=== PATIENT | female | born 1990 | race Caucasian/White ===

== ENCOUNTER 2021-09-09 08:59 | Outpatient (CLI) | payer MEDICAID, SELFPAY ==
[2021-09-09 12:19] LABS: Amphetamine Urine VISTA NEGATIVE (<1000 ng/mL); Barbiturate Urine VISTA NEGATIVE (< 200 ng/mL); Benzodiazepine Urine VISTA NEGATIVE (< 200 ng/mL); Cocaine Urine VISTA NEGATIVE (< 300 ng/mL); Ecstacy Urine VISTA NEGATIVE (< 500 ng/mL); Methadone Urine VISTA NEGATIVE (< 300 ng/mL); PCP Urine VISTA NEGATIVE (< 25 ng/mL); THC Urine VISTA NEGATIVE (< 50 ng/mL); Vista UDS pH Range 6
[2021-09-12 00:06] LABS: Chlamydia By Nucleic Acid AMP Negative (Negative)
[2021-09-12 14:09] LABS: Gonococcus By Nucleic Acid AMP Negative (Negative)
== END 2021-09-09 23:59 | disposition short-term general hospital (02) ==
PROVIDERS: PCP Family Medicine; Visit Provider Obstetrics & Gynecology
DX: O09.90 Supervision of high risk pregnancy, unspecified, unspecified trimester (principal); Z3A.00 Weeks of gestation of pregnancy not specified
CPT/HCPCS: 80307; 87086; 87088; 87186; 87491; 87591

== ENCOUNTER 2021-10-13 08:14 | Outpatient (CLI) | payer MEDICAID, SELFPAY | END 2021-10-13 23:59 | disposition home or self-care (01) | LOC: LABSPEC 08:15 | PROVIDERS: PCP Family Medicine; Visit Provider Obstetrics & Gynecology | DX: O99.891 Other specified diseases and conditions complicating pregnancy (principal); R82.71 Bacteriuria; Z3A.00 Weeks of gestation of pregnancy not specified | CPT/HCPCS: 87086 ==

== ENCOUNTER 2021-11-04 13:29 | Outpatient (CLI) | payer MEDICAID, SELFPAY ==
[2021-11-04 13:49] LABS: Absolute Lymphocyte Count 1.16 X10^3/uL (0.83-4.51); Absolute Neutrophil Count 5.2 X10^3/uL (2.0-7.7); Basophil# 0.04 X10^3/uL; Basophil% 0.6 % (0-1); Eosinophils% 1.5 % (0-5); Hematocrit 37.4 % (37-47); Hemoglobin 12.8 g/dL (12.0-15.0); Lymphocyte # 1.16 X10^3/ul (0.83-4.51); Lymphocyte % 16.9 % (19-41); Mean Corp Hgb Conc 34.2 g/dL (32-36); Mean Corpuscular Hgb 32.2 pg (27.0-32.0); Mean Corpuscular Volume 94.2 fL (81-99); Mean Platelet Vol. 9.9 fl (6.2-12.0); Monocyte# 0.36 X10^3/uL; Monocyte% 5.2 % (0-10); NRBC Flagged by Analyzer 0 % (0-5); Neutrophil # 5.18 X10^3/uL (2.7-7.7); Neutrophil % 75.5 % (47-70); Platelet Count 252 K/mm3 (150-450); RBC Distribution Width CV 13.1 % (11.6-14.6); RBC Distribution Width SD 45.5 fl (35.1-43.9); Red Blood Count 3.97 M/mm3 (4.2-5.4); White Blood Count 6.9 K/mm3 (4.4-11.0)
[2021-11-04 14:55] LABS: HIV - WCH Non-Reactive (Nonreactive); Hepatitis B Surface Antigen Non-Reactive (Nonreactive); Hepatitis C Antibody Non-Reactive (Nonreactive); Rubella IgG Reactive (Nonreactive); Syphilis Antibodies Non-reactive
[2021-11-06 18:40] LABS: V-Zoster IgG (Immunity) 808 index (Immune >165)
== END 2021-11-04 23:59 | disposition home or self-care (01) ==
PROVIDERS: Obstetrics & Gynecology; PCP Family Medicine; Referring Provider Nurse Practitioner Women's Health; Visit Provider Nurse Practitioner Women's Health
DX: R30.9 Painful micturition, unspecified (principal)
CPT/HCPCS: 36415; 85025; 86703; 86762; 86780; 86787; 86803; 86850; 86900; 86901; 87086; 87088; 87186; 87340

== ENCOUNTER → 2021-12-29 | Outpatient (CLI) | payer MEDICAID, SELFPAY ==
--- NOTE | 2021-12-29 11:28 | US_ITS ---
We are attempting to reach an attending provider to discuss findings. An addendum with communication details will be sent when the communication is complete. STUDY: SECOND AND THIRD TRIMESTER OBSTETRICAL ULTRASOUND - LIMITED REASON FOR EXAM: Female, 31 years old. growth @ 28 weeks PRIOR ULTRASOUND: None. TECHNIQUE: Transabdominal TECHNICAL QUALITY: Adequate. FINDINGS: There is a single intrauterine fetus. The fetus is in a breech presentation. There is demonstrated cardiac activity with a heart rate of 140 bpm. There is a normal amniotic fluid volume. The largest amniotic fluid pocket measures 5 cm. The amniotic fluid index (FERNANDO) is 14.3 cm. The placenta is posterior in location and is not low lying. There are Grade 0 placental changes. The cervix measures cm in length: 5.3. There is a placental hematoma measuring 20 x 36 mm. BIOMETRY: BPD: 66 mm: 26 weeks, 5 days HC: 263 mm: 28 weeks, 4 days AC: 243 mm: 28 weeks, 4 days FL: 52 mm: 27 weeks, 3 days CI: 70 FL/AC: 21 FL/BPD: 78 HC/AC: 1.08 age by current US: 28 weeks, 0 days. VICKIE by current US: 8.15.22. Estimated weight: 1167 grams, +/- 175 grams, 39 %. Age by LMP: 28 weeks, 0 days. VICKIE by LMP: 8.15.22. US/OB Limited With Biometrics IMPRESSION: There is a single live intrauterine with a heart rate of 140 bpm. age by current US: 28 weeks, 0 days. VICKIE by current US: 8.15.22. Estimated weight: 1167 grams, +/- 175 grams, 39 %. There is a placental hematoma measuring 20 x 36 mm. NSC findings protocol was initiated. Electronically Signed: Poncho Solitario MD at 21:28 EDT ,
== END | disposition home or self-care (01) ==
LOC: OPUS 11:26
PROVIDERS: Referring Provider Nurse Practitioner Women's Health; Visit Provider Nurse Practitioner Women's Health
DX: O43.899 Other placental disorders, unspecified trimester (principal); Z3A.00 Weeks of gestation of pregnancy not specified
CPT/HCPCS: 76816

== ENCOUNTER → 2022-01-01 | Outpatient (CLI) | payer MEDICAID, SELFPAY ==
[2022-01-01 10:48] LABS: Absolute Lymphocyte Count 1.18 X10^3/uL (0.83-4.51); Absolute Neutrophil Count 6.4 X10^3/uL (2.0-7.7); Basophil# 0.03 X10^3/uL; Basophil% 0.4 % (0-1); Eosinophils% 1.2 % (0-5); Hematocrit 32.4 % (37-47); Hemoglobin 10.9 g/dL (12.0-15.0); Lymphocyte # 1.18 X10^3/ul (0.83-4.51); Lymphocyte % 14.4 % (19-41); Mean Corp Hgb Conc 33.6 g/dL (32-36); Mean Corpuscular Hgb 30.4 pg (27.0-32.0); Mean Corpuscular Volume 90.5 fL (81-99); Mean Platelet Vol. 10.3 fl (6.2-12.0); Monocyte# 0.47 X10^3/uL; Monocyte% 5.8 % (0-10); NRBC Flagged by Analyzer 0 % (0-5); Neutrophil # 6.35 X10^3/uL (2.7-7.7); Neutrophil % 77.7 % (47-70); Platelet Count 216 K/mm3 (150-450); RBC Distribution Width CV 12.6 % (11.6-14.6); RBC Distribution Width SD 41.1 fl (35.1-43.9); Red Blood Count 3.58 M/mm3 (4.2-5.4); White Blood Count 8.2 K/mm3 (4.4-11.0)
[2022-01-01 10:56] LABS: Glucose Challenge Gest 1H 50g 142 mg/dL (70-140)
== END | disposition home or self-care (01) ==
PROVIDERS: Referring Provider Nurse Practitioner Women's Health; Visit Provider Nurse Practitioner Women's Health
DX: Z13.1 Encounter for screening for diabetes mellitus (principal)
CPT/HCPCS: 36415; 82950; 85025

== ENCOUNTER → 2022-02-13 | Outpatient (CLI) | payer MEDICAID, SELFPAY ==
[2022-02-13 10:31] LABS: ALB/GLOB Ratio 0.7 RATIO (0.9-2.4); AST(SGOT) 20 U/L (15-37); Alanine Aminotransfer ALT/SGPT 21 U/L (13-56); Albumin, Serum 2.7 g/dL (3.2-5.0); Alkaline Phosphatase 118 U/L (45-117); Anion Gap 5 (5-15); BUN 8 mg/dL (7-18); Calcium,Total 8.9 mg/dL (8.5-10.1); Chloride 107 mmol/L (98-107); Creatinine, Serum 0.66 mg/dL (0.55-1.02); EST Glomerular Filtration Rate 109 mL/min (>60); Est Glom Filt Rate - Afr Amer 132 mL/min (>60); Globulin 4.1 g/dL (2.2-4.2); Glucose 89 mg/dL (74-106); Potassium 3.8 mmol/L (3.5-5.1); Protein, Total 6.8 g/dL (6.4-8.2); Sodium Level 138 mmol/L (136-145)
== END | disposition home or self-care (01) ==
PROVIDERS: Referring Provider Obstetrics & Gynecology; Visit Provider Obstetrics & Gynecology
DX: L29.9 Pruritus, unspecified (principal)
CPT/HCPCS: 36415; 80053

== ENCOUNTER → 2022-02-24 | Outpatient (CLI) | payer MEDICAID, SELFPAY ==
--- NOTE | 2022-02-24 09:14 | US_ITS ---
STUDY: SECOND AND THIRD TRIMESTER OBSTETRICAL ULTRASOUND - LIMITED REASON FOR EXAM: Female, 32 years old growth LMP: 06/16/2021. PRIOR ULTRASOUND: Comparison is made with prior study 12/29/2021. TECHNIQUE: Transabdominal TECHNICAL QUALITY: Adequate. FINDINGS: There is a single intrauterine fetus. The fetus is in a cephalic presentation. There is demonstrated cardiac activity with a heart rate of 130 bpm. There is a normal amniotic fluid volume. The largest amniotic fluid pocket measures 5.21 cm. The amniotic fluid index (FERNANDO) is 12.89 cm. The placenta is fundal and posterior in location. There are Grade 0 placental changes. The cervix measures 4.5 cm in length. BIOMETRY: BPD: 8.74 cm: 35 weeks, 2 days HC: 32.13 cm: 36 weeks, 1 days AC: 32.57 cm: 36 weeks, 3 days FL: 7.01 cm: 35 weeks, 6 days Age by LMP: 36 weeks, 1 days. VICKIE by LMP: 03/23/2022. age by prior US: 36 weeks, 1 days. VICKIE by prior US: 03/23/2022. age by current US: 36 weeks, 0 days. VICKIE by current US: 03/24/2022. Estimated weight: 2892 grams, +/- 434 grams, 55 percentile. US/OB Limited With Biometrics IMPRESSION: Single live intrauterine gestation with mean gestational age of 36 weeks and 1 day. The measurements obtained today fall within normal expected range. Electronically Signed: Les Chaidez MD at 12:17 EDT ,
== END | disposition home or self-care (01) ==
LOC: OPUS 09:13
PROVIDERS: Referring Provider Obstetrics & Gynecology; Visit Provider Obstetrics & Gynecology
DX: O43.899 Other placental disorders, unspecified trimester (principal); Z3A.36 36 weeks gestation of pregnancy
CPT/HCPCS: 76816

== ENCOUNTER → 2022-02-27 | Outpatient (CLI) | payer MEDICAID, SELFPAY | END | disposition home or self-care (01) | LOC: LABSPEC 17:07 | PROVIDERS: Referring Provider Obstetrics & Gynecology; Visit Provider Obstetrics & Gynecology | DX: Z34.93 Encounter for supervision of normal pregnancy, unspecified, third trimester (principal) | CPT/HCPCS: 87077; 87081; 87186 ==

== ENCOUNTER 2022-03-30 05:42 | Inpatient (IN) | payer MEDICAID, SELFPAY ==
[2022-03-30] VITALS (54 sets, daily range): BP systolic 84–164; BP diastolic 45–108; PULSE 60–107; TEMP 36.2–36.9; O2SAT 85–100; BMI 33.8
[2022-03-30] MEDS: Lactated Ringers 1,000 ML 50 ML IV ×2 (07:40→15:28)
[2022-03-30] MEDS: 0.9% Normal Saline Single 100 ML IV.SOLN. INTRA-UTER (07:45)
[2022-03-30 07:56] LABS: Absolute Lymphocyte Count 1.76 X10^3/uL (0.83-4.51); Absolute Neutrophil Count 5.5 X10^3/uL (2.0-7.7); Basophil# 0.07 X10^3/uL; Basophil% 0.9 % (0-1); Eosinophil# 0.21 X10^3/uL; Eosinophils% 2.6 % (0-5); Hematocrit 35.6 % (37-47); Hemoglobin 11.6 g/dL (12.0-15.0); Lymphocyte # 1.76 X10^3/ul (0.83-4.51); Lymphocyte % 21.6 % (19-41); Mean Corp Hgb Conc 32.6 g/dL (32-36); Mean Corpuscular Hgb 28.1 pg (27.0-32.0); Mean Corpuscular Volume 86.2 fL (81-99); Mean Platelet Vol. 12.6 fl (6.2-12.0); Monocyte# 0.63 X10^3/uL; Monocyte% 7.7 % (0-10); NRBC Flagged by Analyzer 0 % (0-5); Neutrophil # 5.46 X10^3/uL (2.7-7.7); Neutrophil % 66.8 % (47-70); POSITIVE COUNT YES; RBC Distribution Width CV 13.7 % (11.6-14.6); RBC Distribution Width SD 42.5 fl (35.1-43.9); Red Blood Count 4.13 M/mm3 (4.2-5.4); White Blood Count 8.2 K/mm3 (4.4-11.0)
[2022-03-30 08:33] LABS: Differential Indicated SCAN CRITERIA MET
[2022-03-30 08:34] LABS: Platelet Estimate ADEQUATE (ADEQ)
[2022-03-30] MEDS: Oxytocin 30 units/NS 500 ml 30 UNITS/500 ML IV.SOLN IV (08:52)
[2022-03-30] MEDS: LACTATED RINGERS 500 ML 999 ML IV ×4 (09:45→23:56)
[2022-03-30] MEDS: Penicillin G 3,000,000 Units 50 ML 100 UNITS IV ×3 (12:15→20:45)
[2022-03-30] MEDS: fentaNYL-bupivacaine (epidural) 100 ML BAG EPIDURAL ×2 (19:19→23:56)
--- NOTE | 2022-03-30 19:26 | HP.PCM.OB_ITS ---
HPI - General General Date of Admission: 03/30/22 HPI Narrative BARBARA DOMINGUEZ, is a 32 F who presents for induction of labor secondary to 41 weeks. extensive counseling was provided regarding risks of IOL versus . she has over a 70% likelihood of success and has had 5 vaginal del iveries in the past. she deines any vb lof admits good fm. Maternal Data Information VICKIE Calculator Estimated Delivery Date Method Current WG Current Estimate 03/23/22 Ultrasound #1 41w 0d Other Estimates 03/30/22 LMP (Certain) 40w 0d PFSH [facility] Medical History Hematoma of placenta Home Medications vits,calcium no.78-iron fumarate-folic acid 29 mg-1 mg tablet (Prenatabs FA) 1 tab PO DAILY 02/12/15 [History Last Taken 02/12/15] nitrofurantoin macrocrystal 100 mg capsule 100 mg PO BID #60 caps 11/04/21 [Rx Last Taken Unknown] Allergy/AdvReac Type Severity Reaction Status Date / Time No Known Allergies Allergy Verified 03/27/22 09:38 Surgical History History of delivery History of colposcopy Social History adopted: No household members: significant other and children number of children: 6 current occupational status: employed current occupation: [employer] pets and animals: Yes pets and animals: dog(s) Smoking Status: Never smoker alcohol intake: never substance use type: does not use what type of physical activity do you participate in: walking additional social history: BF Daysi History 9 Elective abortions Hx Para 6 Spontaneous abortions 2 Hx # Term Pregnancies 6 Ectopic pregnancies Hx # Pregnancies Multiple births # of living children 6 Past Pregnancies Del. Date Name GA/Weeks Outcome Route Bth Weight Infant Gen Labor Lgth Anesthesia Del Locatn Provider FOB 10/19/05 Dexter live - full term 7#12oz Female non e [facility] [place] Daily 04/08/09 Boo live - full term 08#4oz Male non e [facility] [place] Daily 03/17/11 Thaddeus live - full term 9#4oz Male none [facility] [place] 06/30/12 Rich live - full term 8# Male none [facility] [place] 02/12/15 Jeff live - full term 7# Male none [facility] [place] Daily 05/28/16 Marco Antonio live - full term 9#4 Male epidural [facility] [place] Daily Delivery Date: 05/28/16 Last Updated by: Luz Chapa MD LGA, labor dystocia, distress, 2 wk postdates. Visit Details Expected Delivery Route/Plan TOLAC patient counseled regarding risks/benefits of trial of labor versus repeat . ACOG/uptodate education given to patient. [] % likelihood of success per calculator TOLAC consent form signed: [] Labor Preferences- CB/BF classes: no labor support person: Daysi labor intervention preferences: pt wants to . pain management options preferred: [] cut cord/dad catch: [] : [] PP control planned: discussed discussed possible routes of delivery and associated risks: [] special requests: [] Plans Covid status: discussed Flu vaccine: discussed Tdap vaccine: declines Rhogam: NA LARC form signed: yes movement and labor precautions reviewed. Problem list reviewed and updated with the most current plan of care details and appropriate orders placed. Relevant counseling for the gestational age provided. Continue routine care and follow up unless otherwise noted in visit notes/problem list details OB Flowsheet Initial Weight: 154 lb Date -?-?-?-?-?-?-?-?-?-?-?-?- EGA Weight BP Urine Prot -?-?-?-?-?-?-?-?-?-?-?-?- Glucose FHR FuHt Pres Dilation -?-?-?-?-?-?-?-?-?-?-?-?- Effaced St Visit Note 10/10/21 -?-?-?-?-?-?-?-?-?-?-?-?- 16w 4d 154 lb (+0 oz) 102/64 Negative -?-?-?-?-?-?-?-?-?-?-?-?- Negative 135 -?--?-?-?-?-?-?-?-?-?-?-?- SM- SM- no vb lof cramping blood work today 11/04/21 -?-?-?-?-?-?-?-?-?-?-?-?- 20w 1d 156 lb (+2 lb) 114/70 Negative -?-?-?-?-?-?-?-?-?-?-?-?- Negative 145 -?-?-?-?-?-?-?-?-?-?-?-?- MH-No VB, LOF. S ome movement. Dysuria-pos UA and culture pending. Rx macrobid and then daily for . Growth US 28 wk. PNL today!! 12/02/21 -?-?-?-?-?-?-?-?-?-?-?-?- 24w 1d 161 lb (+7 lb) 92/60 Negative -?-?-?-?-?-?-?--?-?-?-?-?- Negative 150 -?-?-?-?-?-?-?-?-?-?-?-?- SM- no vb lof go od fm no regular ctx 01/01/22 -?-?-?-?-?-?-?-?-?-?-?-?- 28w 3d 169 lb (+15 lb) 110/70 Negative -?-?-?-?-?-?-?-?-?-?-?-?- Negative 140 -?-?-?-?-?-?-?-?-?-?-?-?- MH-Reactive NST. Needs 3hr GTT and will add FE for anemia. Discussed management for concerning placental hematoma with Dr Chapa. Will get MFM consult. Good FM. NO VB, LOF. 01/16/22 -?-?-?-?-?-?-?-?-?-?-?-?- 30w 4d 168 lb 8 oz (+14 lb 8 oz) 113/78 Negative -?-?-?-?-?-?-?-?-?-?-?-?- Negative 150 -?-?-?-?-?-?-?-?-?-?-?-?- JV- nst reactive . continue twice weekly. setting up weekly growth scans 01/20/22 -?-?-?-?-?-?-?-?-?-?-?-?- 31w 1d 169 lb (+15 lb) 102/60 Negative -?-?-?-?-?-?-?-?-?-?-?-?- Negative 140 -?-?-?-?-?-?-?-?-?-?-?-?- SM- no vb lof go od fm no regular ctx, needs mfm consult 01/23/22 -?-?-?-?-?-?-?-?-?-?-?-?- 31w 4d 171 lb 8 oz (+17 lb 8 oz) 102/71 Negative -?-?-?-?-?-?-?-?-?-?-?-?- Negative 140 -?-?-?-?-?-?-?-?-?--?-?-?- SM- no vb lof go od fm no regular ctx 02/03/22 -?-?-?-?-?-?-?-?-?-?-?-?- 33w 1d 170 lb 8 oz (+16 lb 8 oz) 110/64 Negative -?-?-?-?-?-?-?-?-?-?-?-?- Negative 140 -?-?-?-?-?-?-?-?-?-?-?-?- SM- seen by MFM and diagnosed at [facility], doesn't need additional testing, will fu routinely 02/13/22 -?-?-?-?-?-?-?-?-?-?-?-?- 34w 4d 177 lb (+23 lb) 132/80 Negative -?-?-?-?-?-?-?-?-?-?-?-?- Negative 140 35 -?-?-?-?-?-?-?-?-?-?-?-?- SM- no vb lof go od fm no regular ctx 02/27/22 -?-?-?-?-?-?-?-?-?-?-?-?- 36w 4d 178 lb (+24 lb) 132/80 Negative -?-?-?-?-?-?-?-?-?-?-?-?- Negative 140 37 Cephalic 1 -?-?-?-?-?-?-?-?-?-?-?-?- 0 -4 SM- no vb lof good fm no regular ctx gbs done 03/06/22 -?-?-?-?-?-?-?-?-?-?-?-?- 37w 4d 177 lb 4 oz (+23 lb 4 oz) 120/70 Negative -?-?-?-?-?-?-?-?-?-?-?-?- Negative 140 39 Cephalic -?-?-?-?-?-?-?-?-?-?-?-?- SM- no vb lof go od fm no regular ctx. 03/13/22 -?-?-?-?-?-?-?-?-?-?-?-?- 38w 4d 182 lb (+28 lb) 118/82 -?-?-?-?-?-?-?-?-?-?-?-?- 145 39 Cephalic -?-?-?-?-?-?-?-?-?-?-?-?- JV- pt declines pelvic exam today but wants stripping next week. hoping to . 03/20/22 -?-?-?-?-?-?-?-?-?-?-?-?- 39w 4d 181 lb (+27 lb) 109/78 Negative -?-?-?-?-?-?-?-?-?-?-?-?- Negative 145 41 Cephalic 1 -?-?-?-?-?-?-?-?-?-?-?-?- SM- no vb lof go od fm no regular ctx discussed RLTCS at 41 weeks if no spontaneous labor, growth US ordered 03/27/22 -?-?-?--?-?-?-?-?-?-?-?-?- 40w 4d 180 lb 4 oz (+26 lb 4 oz) 121/89 Negative -?-?-?-?-?-?-?-?-?-?-?-?- Negative -?-?-?-?-?-?-?-?-?-?-?-?- JV- pt is very u pset today about the possibility that wednesday will be a section. She does not want to be checked or examined today. no lof, vaginal bleeding, or dec fm. consent signed today. plan is for her to arrive at 5 am and be checked by the [facility] staff. if she is favorable for a rodriguez bulb, she will get breakfast and start the induction at 7am, otherwise, she will have a section at 7:30 and come NPO. 03/30/22 -?-?-?-?-?-?-?-?-?-?-?-?- 41w 0d 179 lb 3.2 oz (+25 lb 3.2 oz) 126/82 135/83 127/95 130/78 116/77 120/73 124/69 128/87 124/73 122/76 118/77 129/75 135/76 132/80 131/76 133/78 140/77 133/94 137/74 122/72 153/64 -?-?-?-?-?-?-?-?-?-?-?-?- -?-?-?-?--?-?-?-?-?-?-?-?- NST FHR Rate Baby A Baseline: 130 Variability:: Moderate Accelerations:: 15 x 15 Decelerations:: None NST Reactive:: Yes FHR Category:: Category I Uterine Activity:: irregular ROS Constitutional Constitutional: Reports systems reviewed and no addt'l complaints, except as do cumented Eyes Eyes: Denies change in vision ENT HEENT: Reports systems reviewed and no addt'l complaints, except as documented; Denies headache(s) Cardiovascular Cardiovascular: Reports systems reviewed and no addt'l complaints, except as documented; Denies chest pain or dyspnea Respiratory/Chest Respiratory/Chest: Reports systems reviewed and no addt'l complaints, except as documented Gastrointestinal Gastrointestinal: Reports systems reviewed and no addt'l complaints, except as documented; Denies abdominal pain Genitourinary Genitourinary: Reports systems reviewed and no addt'l complaints, except as documented, contractions Details: present (irregular) and movement Details: present; Denies dysuria or genital lesions Musculoskeletal Musculoskeletal: Reports systems reviewed and no addt'l complaints, except as documented Neurologic Neurologic: Reports systems reviewed and no addt'l complaints, except as documented Endocrine Endocrinology: Reports systems reviewed and no addt'l complaints, except as documented Vital Signs Vital Signs Vital Signs: 03/30/22 06:24 03/30/22 06:24 03/30/22 06:27 Temperature Temperature Source Pulse Rate 77 Blood Pressure 126/82 H BP Systolic 126 BP Diastolic 82 Pulse Ox 98 03/30/22 06:27 03/30/22 07:38 03/30/22 07:38 Temperature Temperature Source Pulse Rate 83 84 Blood Pressure 135/83 H BP Systolic 135 BP Diastolic 83 Pulse Ox 03/30/22 07:37 03/30/22 09:07 03/30/22 09:07 Temperature Temperature Source Pulse Rate 81 Blood Pressure 127/95 H BP Systolic 127 BP Diastolic 95 Pulse Ox 98 03/30/22 09:07 03/30/22 09:09 03/30/22 09:09 Temperature Temperature Source Pulse Rate 79 Blood Pressure 130/78 H BP Systolic 130 BP Diastolic 78 Pulse Ox 99 03/30/22 10:02 03/30/22 10:02 03/30/22 10:03 Temperature Temperature Source Temporal Pulse Rate 75 Blood Pressure 116/77 BP Systolic 116 BP Diastolic 77 Pulse Ox 03/30/22 10:03 03/30/22 10:02 03/30/22 11:09 Temperature 97.1 F L Temperature Source Pulse Rate Blood Pressure 120/73 BP Systolic 120 BP Diastolic 73 Pulse Ox 99 03/30/22 11:09 03/30/22 11:09 03/30/22 11:11 Temperature Temperature Source Pulse Rate 76 78 Blood Pressure BP Systolic BP Diastolic Pulse Ox 90 03/30/22 11:11 03/30/22 13:11 03/30/22 13:11 Temperature Temperature Source Pulse Rate 82 Blood Pressure 124/69 H BP Systolic 124 BP Diastolic 69 Pulse Ox 96 03/30/22 14:47 03/30/22 14:47 03/30/22 14:47 Temperature Temperature Source Temporal Pulse Rate 80 Blood Pressure 128/87 H BP Systolic 128 BP Diastolic 87 Pulse Ox 03/30/22 14:47 03/30/22 14:47 03/30/22 15:33 Temperature 98.1 F Temperature Source Pulse Rate Blood Pressure 124/73 H BP Systolic 124 BP Diastolic 73 Pulse Ox 95 03/30/22 15:33 03/30/22 15:33 03/30/22 15:33 Temperature 98.1 F Temperature Source Temporal Pulse Rate 87 Blood Pressure BP Systolic BP Diastolic Pulse Ox 03/30/22 16:38 03/30/22 16:38 03/30/22 17:09 Temperature Temperature Source Pulse Rate 81 Blood Pressure 122/76 H 118/77 BP Systolic 122 118 BP Diastolic 76 77 Pulse Ox 03/30/22 17:09 03/30/22 17:41 03/30/22 17:41 Temperature Temperature Source Pulse Rate 85 82 Blood Pressure 129/75 H BP Systolic 129 BP Diastolic 75 Pulse Ox 03/30/22 18:50 03/30/22 18:50 03/30/22 18:50 Temperature Temperature Source Pulse Rate 81 79 Blood Pressure 135/76 H BP Systolic 135 BP Diastolic 76 Pulse Ox 03/30/22 18:50 03/30/22 18:55 03/30/22 18:55 Temperature Temperature Source Pulse Rate 73 Blood Pressure BP Systolic BP Diastolic Pulse Ox 99 99 03/30/22 18:55 03/30/22 18:55 03/30/22 19:00 Temperature Temperature Source Pulse Rate 85 Blood Pressure 132/80 H 131/76 H BP Systolic 132 131 BP Diastolic 80 76 Pulse Ox 03/30/22 19:00 03/30/22 19:05 03/30/22 19:05 Temperature Temperature Source Pulse Rate 93 93 Blood Pressure 133/78 H BP Systolic 133 BP Diastolic 78 Pulse Ox 03/30/22 19:11 03/30/22 19:11 03/30/22 19:12 Temperature Temperature Source Pulse Rate 88 98 Blood Pressure 140/77 H BP Systolic 140 BP Diastolic 77 Pulse Ox 03/30/22 19:12 03/30/22 19:15 03/30/22 19:15 Temperature Temperature Source Pulse Rate 84 Blood Pressure 133/94 H BP Systolic 133 BP Diastolic 94 Pulse Ox 98 03/30/22 19:17 03/30/22 19:17 03/30/22 19:21 Temperature Temperature Source Pulse Rate 99 Blood Pressure 137/74 H BP Systolic 137 BP Diastolic 74 Pulse Ox 85 03/30/22 19:21 03/30/22 19:21 03/30/22 19:22 Temperature Temperature Source Pulse Rate 96 95 Blood Pressure 122/72 H BP Systolic 122 BP Diastolic 72 Pulse Ox 03/30/22 19:22 03/30/22 19:24 03/30/22 19:24 Temperature Temperature Source Pulse Rate 102 H Blood Pressure BP Systolic BP Diastolic Pulse Ox 100 93 Weight Weight: 179 lb 3.2 oz Body Mass Index (BMI) 33.8 Physical Exam Const alert, oriented x3, no apparent distress and healthy appearing HEENT normocephalic and moist oral mucous membranes Head and Scalp: atraumatic Neck full ROM, no lymphadenopathy, supple and thyroid normal General: trachea midline Lymph Lymphatic: no lymphadenopathy noted Chest inspection of chest normal Resp normal respiratory effort Cardio regular rate GI normal to inspection, nondistended, normoactive bowel sounds, soft to palpation and non-tender Inspection: gravid external exam normal Manual OB Exam: estimated gestational size appropriate, presentation cephalic, dilated, effaced and station Extremity normal to inspection General Extremity: Negative for edema Skin no rashes or lesions noted Neuro no focal motor deficits and deep tendon reflexes 2+ bilaterally Motor Exam: strength 5/5 throughout and clonus absent Psych mental status grossly normal Labs Labs Labs: Blood Type O POSITIVE Antibody Screen NEGATIVE Hct 35.6 % (37-47) L Hgb 11.6 g/dL (12.0-15.0) L Pap Smear Negative Obstetrics US Syphilis Total Ab Non-reactive VZV IgG Antibody 808 index (Immune >165) Rubella IgG Antibody Reactive (Nonreactive) Hep Bs Antigen Non-Reactive (Nonreactive) Chlamydia DNA (ROB) Negative (Negative) Neisseria gonorrhoeae DNA (ROB) Negative (Negative) HIV 1&2 Antibody Non-Reactive (Nonreactive) Glucose 1 Hr 50 gm 142 mg/dL (70-140) H Group B Strep DNA Negative (Negative-) Rhogam given: No Miscellaneous Test Assessment & Plan (1) Post-dates : (2) History of delivery: COMMENT: Wants TOLAC. New partner. #8 c section labor dystocia, distress, postdates. Previous all , csection scheduled 03/30 @ 12 SM (3) : QUALIFIERS: Weeks of gestation: 40 weeks Qualified Code(s): Z3A .40 - 40 weeks gestation of COMMENT: anatomy nl, Declines genetic and carrier screen. nl growth US 02/23/22, (4) Supervision of high risk , antepartum: COMMENT: PRR VICKIE:03/30/22. girl PC:Gil Renteria, Thaddeus, Jeff, Marco Antonio. BF:Daysi. (5) Asymptomatic bacteriuria: COMMENT: 1000- 10,000 CFU ecoli on new ob exam. rpt culture neg. 11/04 2nd UTI. Macrobid then daily. (6) Hematoma of placenta: COMMENT: s/p MFM consult- it is a placental dempsey, recommend repeat growth in 4 weeks, stop testing unless needed for other indications. (7) Immunity to varicella determined by serologic test: COMMENT: confirmed immunity with NOB labs (8) Anemia in preg-unspec: QUALIFIERS: Trimester: third trimester Qualified Code(s): O99.013 - Anemia complicating , third trimester COMMENT: add FE (9) Abnormal glucose complicating childbirth: COMMENT: declined 3 hr GTT, checked fasting and 2 hr PPG x 1 week. (10) Generalized pruritus: COMMENT: labs ordered, negative bile acids (11) GBS (group B Streptococcus carrier), +RV culture, currently : COMMENT: plan PCN in labor PLAN: Plan Patient presents pit and fb IOL discussed how pitocin increases risk of uteirne rupture but still low overall risk, patient wishes to proceed. Pain management: open to epidural. GBS positive plan IV PCN. Management of any complications: none I have reviewed the [facility] and made any clinically relevant updates.
--- NOTE | 2022-03-30 19:30 | PCM.PN.BLA ---
Progress Note s/p epidurla with postepidural hypotension and quick change to 6-7 cm 70 percent and -2 current tracing: FHT: 150 minimal variability recurrent variable and late decels resolved with position changes, turning off pitocin, amnioinfusion and fluid bolus and ephedrine. [place]: q2 to now q 4-5 Contractions reviewed tracing abnormalities since last note: see above now cat ii with 150 minimal variability no decels A/P: continue exp management positive scalp stimulation, transient heart rate changes with good recovery overall reassuring ocntinue labor. pitocin off at present
[2022-03-30] MEDS: Amnioinfusion- 0.9% NS 1,000 ML IV.SOLN. INTRA-UTER (19:55)
[2022-03-30] MEDS: Lactated Ringers 1,000 ML 200 ML IV (22:08)
[2022-03-31] VITALS (26 sets, daily range): BP systolic 86–120; BP diastolic 53–94; PULSE 76–123; RESP 13–26; TEMP 36.2–37.1; O2SAT 95–100
--- NOTE | 2022-03-31 | FALS_PTH ---
PATIENT: BARBARA DOMINGUEZ LOC: WP U#:[id number] AGE/SX: 32/F ROOM: WP009 RE03/30/[address]: Dr. Luz Chapa MD : 1990 BED: 1 DIS: 04/03/2022 SPEC #: [id number] RECD: 03/31/22 13:24 STATUS: BEN RESu #: [id number] SCOTT: 03/31/22 00:[address]: Luz Chapa DEPT: SURGICAL PATHOLOGY RECD BY: Thogn Arredondo ENTERED: 03/31/22 13:25 SP TYPE: FALL TUBES OTHR DR: MD Dr. Hany Wiseman, DO Dr. Jessica David, DO Dr. Chris Olea MD No Primary Care Phys OUSMANE Mcbride Tissues: A - Uterus, NOS B - Fallopian tube Procedures: Surgery Specimen Level IV Surgery Specimen Level V HEADER OPERATION: Hysterectomy, left tubal PRE-OP DIAGNOSIS: section TISSUE SUBMITTED: A - Uterus and left fallopian tube, B ? Right ovary and fallopian tube MICROSCOPIC DIAGNOSIS A. Uterus and fallopian tube, hysterectomy and left salpingectomy: Proximal cervix ? ulceration and acute inflammation. Endometrium ? decidual changes. Myometrium - no pathologic diagnosis. Left fallopian tube ? acute inflammation predominantly involving fimbrial end. B. Right ovary and fallopian tube: Fallopian tube and adjacent broad ligament tissue with reactive changes, congestion and hemorrhage. See comment. SJ:bruna 04/01/2022 COMMENT B. Ovary is not identified in the specimen. Entire specimen is submitted. Clinical correlation is necessary. MICROSCOPIC DESCRIPTION Slides are reviewed. GROSS DESCRIPTION A - Received in fixative is one container labeled with the patient's name and designated uterus. The specimen consists of a hysterectomy specimen consisting of uterus and a portion of proximal cervix and detached fallopian tube. The uterus with cervix weighs 1292 gm and measures 20 x 16 x 8 cm. The serosal surface is mixon, glistening. A portion of endocervical canal measures 5 cm in length. The endocervical mucosa is congested. No mass lesion is identified. The triangular endometrial cavity measures 12 x 8 cm. The endometrial surface is congested and hemorrhagic. No placental tissue is identified. A focal area with suture is noted at the lower uterine segment, most likely site of section. The endometrium measures up to 0.2 cm in thickness. Sections of the uterine wall do not reveal any mass lesion and measures up to 4.5 cm in thickness. The detached fallopian tube measures 7.5 cm in length and 1 cm in diameter. The fimbrial end is identified. Sections reveal unremarkable cut surfaces. Production Maintenance Technician sections are submitted in nine cassettes as follows: 1 - anterior cervix, 2 - posterior cervix, 3 & 4 - anterior uterine wall, 5 & 6 - posterior uterine wall, 7& 8 - uterine wall, uterine lower segment, site of sutured incision, 9 - fallopian tube. B - Received in fixative is one container labeled with the patient's name and designated right fallopian tube. The specimen consists of a fallopian tube including fimbrial end measuring 6 cm in length and 1 cm in diameter. Sections reveal unremarkable cut surfaces. Ovarian tissue is not identified. Adjacent tissue (broad ligament tissue) shows congested and hemorrhagic cut surface. Production Maintenance Technician sections are submitted in one cassette. / MAYR:bruna 03/31/2022 TC:5 Rest of the specimen is submitted in three more casssettes 2 to 4. 04/06/22 CPT: 45016, 13956 ADDENDUM ADDENDUM ADDENDUM ADDENDUM ADDENDUM ADDENDUM ADDENDUM ADDENDUM ADDENDUM ADDENDUM ADDENDUM 04/14/2022 14:42 ADDENDUM 04/14/2022 14:42 ADDENDUM 04/14/2022 14:42 ADDENDUM 04/14/2022 14:42 ADDENDUM 04/14/2022 14:42 This case is discussed with Dr. Chapa?s nurse. A possible ovarian tissue is noted adjacent to the lower uterine segment near the sutured area measuring 5 x 1.5 x 1.5 cm. This tissue is submitted in entirety as follows: 05-21 ? possible ovarian tissue, 14 ? adjacent tissue. / SJ:bruna 04/10/2022 This tissue is identified by surgeon as right ovary. MICROSCOPIC DIAGNOSIS: Ovarian tissue with physiologic follicular cyst and focal decidual changes. MARY:bruna 04/14/2022
--- NOTE | 2022-03-31 00:46 | PN_ITS ---
Progress Note patient feels some pressure with contractions 8-9 cm cervix stretchy but doesn't want to reduce yet. some swelling to cervix +1 station. current tracing: FHT: 150 minimal variability nonreactive recurrent mild -moderate periodic variables [place]: q 2 Contractions reviewed tracing abnormalities since last note: position changes and amnioinfusion done. A/P: discusssed with patient minimal change with adequate ctx x 2 hours and persistent variable decels. offered proceeding with RLTCS vs exp management patient wishes to proceed with exp management, discussed will recommend if not complete within 2 hours or no improvement of variable decels
[2022-03-31] MEDS: Penicillin G 3,000,000 Units 50 ML 100 UNITS IV (00:50)
[2022-03-31] MEDS: Sodium Citrate/Citric Acid 30 ML UDC PO (02:15)
--- NOTE | 2022-03-31 02:15 | EX.PCM.OBRPT ---
Assessment & Plan (1) Arrest of dilation, delivered, current hospitalization: COMMENT: AOD 8-9 cm (2) Post-dates : (3) GBS (group B Streptococcus carrier), +RV culture, currently : COMMENT: plan PCN in labor (4) Generalized pruritus: COMMENT: labs ordered, negative bile acids (5) Abnormal glucose complicating childbirth: COMMENT: declined 3 hr GTT, checked fasting and 2 hr PPG x 1 week. (6) Anemia in preg-unspec: QUALIFIERS: Trimester: third trimester Qualified Code(s): O99.013 - Anemia complicating , third trimester COMMENT: add FE (7) Immunity to varicella determined by serologic test: COMMENT: confirmed immunity with NOB labs (8) History of delivery: COMMENT: Wants TOLAC. New partner. #8 c section labor dystocia, distress, postdates. Previous all , csection scheduled 03/30 @ 12 SM (9) : QUALIFIERS: Weeks of gestation: 40 weeks Qualified Code(s): Z3A.40 - 40 weeks gestation of COMMENT: anatomy nl, Declines genetic and carrier screen. nl growth US 02/23/22, (10) Supervision of high risk , antepartum: COMMENT: PRR VICKIE:03/30/22. girl PC:Gil Renteria Caleb, Evan, Finnlee. BF:Daysi. (11) Asymptomatic bacteriuria: COMMENT: 1000- 10,000 CFU ecoli on new ob exam. rpt culture neg. 11/04 2nd UTI. Macrobid then daily. (12) Hematoma of placenta: COMMENT: s/p MFM consult- it is a placental dempsey, recommend repeat growth in 4 weeks, stop testing unless needed for other indications. (13) delivery delivered: COMMENT: AOD 8-9 cm recurrent variables 41 IOL postdates SM failed TOLAC RLTCS cervical extension chyst girl (14) Cervical laceration: COMMENT: cervical extension at time of RLTCS during failed TOLAC (15) S/P emergency hysterectomy: Maternal Data Information VICKIE Calculator Estimated Delivery Date Method Current WG Current Estimate 03/23/22 Ultrasound #1 41w 1d Other Estimates 03/30/22 LMP (Certain) 40w 1d Final VICKIE Source: LMP Gestational age: 39 Details Operative Information Date of Procedure: 03/31/22 Pre-Operative Diagnosis: AOD 8-9 cm with recurrent variables Post-Operative Diagnosis: same plus cervical extension hemorrhage hysterectomy Indications Narrative: Patient presented for induction of labor secondary to 41 weeks. Patient was consented originally for trial of labor after with induction versus repeat low transverse . Due to her over 70% likelihood of success and 5 previous vaginal deliveries patient requested proceeding with induction of labor. Patient underwent Badillo bulb and Pitocin induction of labor. She had spontaneous rupture of membranes. She underwent epidural and then had an arrest of dilation at 8 to 9 cm. Decision was made to proceed with repeat low transverse . Classification: CLEM Procedure Type: low transverse (ending in hysterectomy, cystoscopy) emergency telecommunications dispatcher #1: Enrique Diana emergency telecommunications dispatcher #2: Jessica David Type of Anesthesia: Epidural and General Special Medications: TXA methergine pitocinarista Antibiotic Given: Ancef 2 grams IV x1 and Zithromax 500 mg/5 mL X1 Drain: Badillo to straight drain Estimated Blood Loss: 2200 Fluids Replaced: crystalloid Findings Description of Procedure: The patient was placed in the dorsal supine position with leftward tilt. Patient was prepped and draped in the normal sterile fashion. Pfannenstiel skin incision was made with the scalpel and carried through to the underlying layer of fascia with the scalpel. Fascia was nicked in the midline and the incision extended laterally. The rectus bellies were dissected off superiorly and inferiorly with out complication both sharply and bluntly. The peritoneum was entered digitally. The incision was stretched and a low transverse uterine incision was made with the scalpel. The infant's head was delivered atraumatically followed by the anterior and posterior shoulders without complication the rest of the infant delivered. The cord was clamped and cut and the was handed off to awaiting nurse. The placenta was delivered spontaneously immediately following and was noted to be intact and have a three-vessel cord. Uterus was exteriorized and cleared of all clots and debris. Cervical extension in the right side was noted and uterine incision was closed in a double layer closure incorporating the cervical extension. During the uterine closure blood was noted in the Badillo bag and a right broad ligament hematoma started to form therefore the decision was made to perform a cystoscopy eventually and second physician was called in for additional assistance. Bladder was dissected down off the uterus and backfilled with methylene blue and no structural integrity issues were noted. Several [place] stitches were placed with Monocryl and chromic suture on the right side trying to reduce the broad ligament hematoma and control bleeding. Additional sutures over the area where the cervical extension was previously seen in the right side of the uterine incision was made. Some bleeding noted on the posterior peritoneal edge of where some of the [place] stitches were placed were oversewn with 2-0 Vicryl and 3-0 Monocryl. The broad ligament hematoma also caused a superficial tear in the serosa and swelling around the fallopian tube. On the right side these vessels were cauterized and part of the fallopian tube was removed in an attempt to control the bleeding. Additional sutures were placed around the areas on the right side of the uterus to obtain hemostasis. Cystoscopy was then performed because hemostasis seemed fair and cystoscopy confirmed bilateral ureteral patency with no defects or stitches seen within the bladder. Attention was then paid back to the abdominal portion and additional bleeding was noted. Twice the uterus was exteriorized additional sutures were placed along the broad ligament hematoma to try and manage bleeding and another [place] stitch was placed on the left uterine artery to try and reduce pressure and blood flow to the overall uterus. Sherlyn was used multiple times in different areas. Methergine and TXA had been given. After 3 hours of attempting to save the uterus bleeding was still encountered with no explainable cause despite exploration and therefore the decision was made at this time to proceed with hysterectomy. Dr. Sarabia, second physician, agreed with the decision. Decision making was discussed with the patient before she was put under general anesthesia and also discussed with her significant other and both agreed to proceed due to the lifesaving nature of this recommendation. Due to the compromised blood supply from the multiple sutures that were placed on the right side of the uterus right oophorectomy was performed along with salpingectomy and the left fallopian tube was also removed. Hillary clamps were used to clamp along the parametrial broad ligament sutured with 0 Vicryl. The LigaSure device was used to cauterize and cut on the left side of the uterus. Bladder was further dissected off the cervix and as the uterus was progressively from its pelvic sidewall attachment to the broad ligament a large continuous cervical extension of the previously noted laceration was seen and this was felt to be the cause of the persistent broad ligament hematoma that was unable to be managed conservatively and then required hysterectomy. This was unable to be seen due to its parametrial and retroperitoneal and then extending into the vaginal canal presentation. This was felt to be the ultimate cause for needing a hysterectomy. Hysterectomy was continued and using Hillary clamps bilaterally underneath the cervix uterus was amputated and remaining vaginal stump suture-ligated with 0 Vicryl. Additional sutures were placed across the cuff to provide reapproximation. Excellent hemostasis was noted over all the pedicles. Peritoneum was reapproximated with 3-0 Monocryl. Fascia closed with 0 PDS and subcutaneous tissue closed with 3-0 Monocryl and skin closed with 4-0 Monocryl. Patient had Steri-Strips applied and silver Mepilex and will be taken to the ICU for monitoring afterwards. Amniotic Membrane Rupture Type: Spontaneous Amniotic Fluid Description: Clear Placental Delivery Description: Spontaneous Placenta Disposition: [facility] Cord Vessel Description: 3 Vessels Cord Entanglement: None A Gender: Female Delayed Cord Clamping: Yes Complications Risks of Surgery Discussed w/Patient: Bleeding, Infection, Need for Future C-Sections and Injury to surrounding structure(s) including bowel and bladder Complications: none Admit VTE Documentation VTE Present on Admission: No VTE Mechan Device Prophylaxis: SCD's Procedures Urinary/Genital 52xxx-59xxx: 52503 delivery+PP Care([facility]) Multi Select Codes Urinary/Genital Urinary/Genital CPT Codes: 83899 Cystoscopy, 79323 C-Hyst and 00454 failed
--- NOTE | 2022-03-31 02:22 | DCINST_ITS ---
Discharge Instructions Diet Discharge Diet: No restrictions Activity Discharge Activity: Return to Normal Activity, May Drive (when pain free and off narcotic pain meds), May Shower and May Take a Tub Bath (in 4 weeks) May resume sexual activity in: 6 weeks Weight Bearing Status: Full weight bearing Lifting Restrictions: under 30 lbs for 6 weeks Dressing / Incision Call your doctor if your incision/area has: Continuous Slow Oozing, Sudden Increased Bleeding, Increased Pain/ Swelling, Increased Redness, Foul Smelling Discharge and - Call your doctor if you observe: Fever of 101 or Higher, Using more than 1 pad per hour, Shortness of breath, Chest pain and Uncontrolled pain Suture Line Care: Avoid Pulling/Pushing and Avoid Pinching/Bending Change Dressing in: 1 week (leave open to air after removed) Remove Dressing in: 1 week (if present) Cleanse incision/area with: Soap & Water and Keep Dressing Clean & Dry Follow Up Care Please Follow Up With: Luz Chapa MD When: Call to make an appointment with your doctor for a postop visit in 2 and 6 weeks. Test Results: Test results from this visit will be discussed in further detail at your follow- up appointment, if applicable. Discharge Plan Admission Admit Date/Time: 03/30/22 05:42 Primary Reason for Your Visit: hysterectomy Attending Provider: Luz Chapa Primary Care Provider: Care PhysicianNicole Primary Discharge Orders/Prescriptions Prescriptions: New naproxen 250 mg tablet 250 - 500 mg PO Q8H PRN PRN (Reason: MILD PAIN) Qty: 30 1RF oxycodone-acetaminophen [Percocet] 5-325 mg tablet 1 tab PO Q6H PRN (Reason: pain) 7 Days Qty: 20 0RF ferrous sulfate [Iron (ferrous sulfate)] 325 mg (65 mg iron) tablet 325 mg PO BID Qty: 60 3RF docusate sodium [Colace] 100 mg capsule 100 mg PO BID Qty: 60 2RF No Action vit,[id number] [Prenatabs FA] 1 TABLET tablet 1 tab PO DAILY nitrofurantoin macrocrystal 100 mg capsule 100 mg PO BID Qty: 60 2RF Rx Instructions: Take bid X 7 days then daily for remainder of administer with food (meal or snack) Referrals / Follow Up: Care Physician,No Primary [Primary Care Provider] - Disposition Disposition (needs filled in before D/C Order can be placed): Home, Self Care
[2022-03-31] MEDS: Cefazolin 2 GM in 0.9% Normal Saline 100 ML IV ×2 (02:30→14:31)
[2022-03-31] MEDS: Methylergonovine 0.2 MG/ML Ampul IM (04:22)
[2022-03-31 04:41] LABS: Absolute Lymphocyte Count 0.58 X10^3/uL (0.83-4.51); Absolute Neutrophil Count 15.1 X10^3/uL (2.0-7.7); Basophil# 0.03 X10^3/uL; Basophil% 0.2 % (0-1); Eosinophil# 0.01 X10^3/uL; Eosinophils% 0.1 % (0-5); Hemoglobin 9.5 g/dL (12.0-15.0); Lymphocyte # 0.58 X10^3/ul (0.83-4.51); Lymphocyte % 3.5 % (19-41); Mean Corp Hgb Conc 30.6 g/dL (32-36); Mean Corpuscular Volume 91.4 fL (81-99); Mean Platelet Vol. 11.9 fl (6.2-12.0); Monocyte# 0.99 X10^3/uL; Monocyte% 5.9 % (0-10); NRBC Flagged by Analyzer 0 % (0-5); Neutrophil # 15.08 X10^3/uL (2.7-7.7); Neutrophil % 89.8 % (47-70); POSITIVE DIFFERENTIAL YES; Platelet Count 170 K/mm3 (150-450); RBC Distribution Width SD 46.5 fl (35.1-43.9); Red Blood Count 3.39 M/mm3 (4.2-5.4); White Blood Count 16.8 K/mm3 (4.4-11.0)
[2022-03-31 04:44] LABS: Differential Indicated SCAN CRITERIA MET
[2022-03-31 04:52] LABS: International Normalized Ratio 1.2; Prothrombin Time (Protime)PT. 14.4 SECONDS (11.7-14.9)
[2022-03-31 04:53] LABS: Fibrinogen 360 mg/dl (203-444)
--- NOTE | 2022-03-31 07:05 | NURSING ---
0632 patient arrived from OR, drowsy but arousable. Monitor sinus, bp 107/75. report received from OR staff.
[2022-03-31] MEDS: Acetaminophen 500 MG Tablet 1000 MG PO ×3 (07:42→20:00)
[2022-03-31] MEDS: Ketorolac 30 MG/ML Syringe IV ×3 (07:42→20:00)
[2022-03-31] MEDS: Senna/Docusate Sodium 1 Tablet PO (07:42)
[2022-03-31] MEDS: Lactated Ringers 1,000 ML 100 ML IV (07:43)
[2022-03-31 08:17] LABS: Absolute Lymphocyte Count 0.78 X10^3/uL (0.83-4.51); Absolute Neutrophil Count 14.3 X10^3/uL (2.0-7.7); Basophil# 0.02 X10^3/uL; Basophil% 0.1 % (0-1); Hematocrit 29.6 % (37-47); Hemoglobin 9.5 g/dL (12.0-15.0); Lymphocyte # 0.78 X10^3/ul (0.83-4.51); Lymphocyte % 4.8 % (19-41); Mean Corp Hgb Conc 32.1 g/dL (32-36); Mean Corpuscular Hgb 27.9 pg (27.0-32.0); Mean Corpuscular Volume 87.1 fL (81-99); Mean Platelet Vol. 11.5 fl (6.2-12.0); Monocyte# 1.09 X10^3/uL; Monocyte% 6.7 % (0-10); NRBC Flagged by Analyzer 0 % (0-5); Neutrophil # 14.26 X10^3/uL (2.7-7.7); Platelet Count 169 K/mm3 (150-450); RBC Distribution Width SD 43.8 fl (35.1-43.9); White Blood Count 16.2 K/mm3 (4.4-11.0)
--- NOTE | 2022-03-31 08:24 | EX.PCM.CONCC ---
Assessment & Plan Assessment/Plan (1) S/P emergency hysterectomy: PLAN: Plan RECOMMENDATIONS: 1. Continue to monitor blood counts and transfuse if hemoglobin drops below 7 g/dL. 2. Gentle IV fluid hydration until diet can be advanced. 3. Encourage incentive spirometer use while in bed and mobilize patient as tolerated. IMPRESSIONS: 1. hemorrhage The patient was transferred to the ICU after she developed hemorrhage after , necessitating hysterectomy. Intraoperative blood loss was noted to be 2.2 L. The patient is currently afebrile and hemodynamically stable on room air. Her hemoglobin did drop from 9.5 to 7.8 g/dL. However, her platelet count and coagulation profile remain within normal limits. We will continue gentle IV fluid hydration and perioperative antimicrobials. Continue to monitor blood counts and transfuse if hemoglobin drops below 7 g/dL. This note was generated with [employer] dictation software. It may contain incorrect words, spelling, and punctuation that were not noted in checking the note before signing. HPI Consult Data Date of Consult: 04/01/22 HPI Narrative Reason for Consultation: hemorrhage HPI Narrative: The patient is a 32-year-old female, with a history as outlined below, who presented to the hospital on March 30 for induction of labor. However, due to arrest of labor, the patient was ultimately taken for . Unfortunately, the patient developed a cervical extension hemorrhage that ultimately resulted in a hysterectomy. Estimated intraoperative blood loss was 2.2 L. The patient's last lab work revealed a white blood cell count of 16,000 with a hemoglobin of 9.5 g/dL. Her last set of coags were within normal limits. The patient, at the present time, is hemodynamically stable and maintaining appropriate oxygen saturations on room air. She does report some generalized achiness but is otherwise without any specific complaints. [facility] Medical History (Updated 04/01/22 @ 07:[address] Jessica David, ) Acute postoperative anemia due to greater than expected blood loss Cervical laceration delivery delivered Hematoma of placenta hemorrhage Home Medications vits,calcium no.78-iron fumarate-folic acid 29 mg-1 mg tablet (Prenatabs FA) 1 tab PO DAILY 02/12/15 [History Last Taken 02/12/15] nitrofurantoin macrocrystal 100 mg capsule 100 mg PO BID #60 caps 03/29/22 [Rx Last Taken Unknown] naproxen 250 mg tablet 250 - 500 mg PO Q8H PRN PRN MILD PAIN #30 tabs 03/31/22 [Rx Last Taken Unknown] oxycodone-acetaminophen 5 mg-325 mg tablet (Percocet) 1 tab PO Q6H PRN pain 7 days #20 tabs 03/31/22 [Rx Last Taken Unknown] Allergy/AdvReac Type Severity Reaction Status Date / Time No Known Allergies Allergy Verified 03/27/22 09:38 Surgical History (Updated 03/31/22 @ 16:28 by Megan Fine) History of delivery History of colposcopy S/P emergency hysterectomy Social History adopted: No household members: significant other and children number of children: 6 current occupational status: employed current occupation: [employer] pets and animals: Yes pets and animals: dog(s) Smoking Status: Never smoker alcohol intake: never substance use type: does not use what type of physical activity do you participate in: walking additional social history: BF [employer] Kitchen Narrative 10 systems were reviewed with pertinent positives as noted in HPI above. Physical Exam Const alert, oriented x3 and no apparent distress General Appearance: cooperative HEENT normocephalic, head/scalp atraumatic and moist oral mucous membranes Eyes PERRL, EOMs intact bilaterally and conjunctivae normal Neck supple General: trachea midline Chest inspection of chest normal Resp normal respiratory effort Auscultation: Negative for rales, rhonchi or wheezes Cardio regular rate and regular rhythm GI soft to palpation GI Narrative: RAJ drain in situ Palpation: tender Extremity no clubbing, cyanosis or edema Skin no rashes or lesions noted Neuro oriented x3, CN's II-XII intact bilaterally, moves all extremities and no focal motor deficits Psych Mood & Affect: flat affect Lab / Micro Data Result Diagrams: 04/01/22 06:45 Labs: Laboratory Results - last 24 hr 03/30/22 07:40: WBC 8.2, RBC 4.13 L, Hgb 11.6 L, Hct 35.6 L, MCV 86.2, MCH 28.1, MCHC 32.6, RDW Std Deviation 42.5, RDW Coeff of Hayley 13.7, Plt Count , MPV 12.6 H, Immature Gran % (Auto) 0.400, Neut % (Auto) 66.8, Lymph % (Auto) 21.6, [place] % (Auto) 7.7, Eos % (Auto) 2.6, Baso % (Auto) 0.9, Absolute Neuts (auto) 5.5, Absolute Lymphs (auto) 1.76, Nucleated RBC % 0, Platelet Estimate ADEQUATE 03/30/22 07:40: Blood Type O POSITIVE, Antibody Screen NEGATIVE 03/31/22 04:25: WBC 16.8 H, RBC 3.39 L, Hgb 9.5 L, Hct 31.0 L, MCV 91.4 D, MCH 28.0, MCHC 30.6 L D, RDW Std Deviation 46.5 H, RDW Coeff of Hayley 14.0, Plt Count 170, MPV 11.9, Immature Gran % (Auto) 0.500, Neut % (Auto) 89.8 H, Lymph % (Auto) 3.5 L, [place] % (Auto) 5.9, Eos % (Auto) 0.1, Baso % (Auto) 0.2, Absolute Neuts (auto) 15.1 H, Absolute Lymphs (auto) 0.58 L, Nucleated RBC % 0 03/31/22 04:25: PT 14.4, INR 1.2, APTT 30.0, Fibrinogen 360 03/31/22 08:05: WBC 16.2 H, RBC 3.40 L, Hgb 9.5 L, Hct 29.6 L, MCV 87.1, MCH 27.9, MCHC 32.1, RDW Std Deviation 43.8, RDW Coeff of [place] 14.0, Plt Count 169, MPV 11.5, Immature Gran % (Auto) 0.400, Neut % (Auto) 88.0 H, Lymph % (Auto) 4.8 L, [place] % (Auto) 6.7, Eos % (Auto) 0.0, Baso % (Auto) 0.1, Absolute Neuts (auto) 14.3 H, Absolute Lymphs (auto) 0.78 L, Nucleated RBC % 0 Micro: Microbiology 03/30/22 07:00 Nasal Secretion SARS-CoV-2 Antigen (Rapid) - Final Charges/Coding Visit Charges Inpatient E&M: 01560 Init Hosp L2
[2022-03-31 08:38] LABS: Partial Thromboplast Time 29.7 Seconds (24.1-36.2)
[2022-03-31 08:42] LABS: Fibrinogen 371 mg/dl (203-444); International Normalized Ratio 1.2; Prothrombin Time (Protime)PT. 14.9 SECONDS (11.7-14.9)
[2022-03-31 11:32] LABS: Pathology Specimen OB SEE PATHOLOGY REPORT
[2022-03-31 12:32] LABS: Absolute Lymphocyte Count 0.91 X10^3/uL (0.83-4.51); Absolute Neutrophil Count 8.7 X10^3/uL (2.0-7.7); Basophil# 0.02 X10^3/uL; Basophil% 0.2 % (0-1); Hematocrit 24.3 % (37-47); Hemoglobin 7.8 g/dL (12.0-15.0); Lymphocyte # 0.91 X10^3/ul (0.83-4.51); Lymphocyte % 8.9 % (19-41); Mean Corp Hgb Conc 32.1 g/dL (32-36); Mean Corpuscular Hgb 28.1 pg (27.0-32.0); Mean Corpuscular Volume 87.4 fL (81-99); Mean Platelet Vol. 12.1 fl (6.2-12.0); Monocyte# 0.51 X10^3/uL; NRBC Flagged by Analyzer 0 % (0-5); Neutrophil # 8.74 X10^3/uL (2.7-7.7); Neutrophil % 85.6 % (47-70); Platelet Count 166 K/mm3 (150-450); RBC Distribution Width SD 44.2 fl (35.1-43.9); Red Blood Count 2.78 M/mm3 (4.2-5.4); White Blood Count 10.2 K/mm3 (4.4-11.0)
--- NOTE | 2022-03-31 13:28 | NURSING ---
0911 IBCLC to ICU to assist mother with pumping and collecting breast milk for baby. Mother reports that she was always able to breastfeed her other child. We discussed the previously filled out huddle form that allowed for use of formula while she was in ICU or unable to pump. Mother still agrees formula use is okay if she is unable to pump enough breastmilk. Shown how the rodriguez cup is being used for feeding. Pump shown, explained, and a pumping schedule was put on her white board as well as the IBCLC phone number to contact if needed. Mother is hoping to be back from ICU this later in the afternoon and would like to then resume at breast. Mother was able to pump 20cc in 15min and denies pain with pumping. Pump parts cleaned after pumping and pump reassembled for next session.
--- NOTE | 2022-03-31 13:32 | PCM.PN.OB ---
Subjective Subjective Hg normalizing. pain controlled. no CP SOB N V Objective Data Objective Data Vital Signs: Vital Signs Temp Pulse Resp BP Pulse Ox O2 Del Method 97.9 F 88 17 94/63 96 Room Air 03/31/22 12:00 03/31/22 13:00 03/31/22 13:00 03/31/22 13:00 03/31/22 13:00 03/31/22 13:00 Oxygen Delivery Method Room Air Weight: 179 lb 3.2 oz Body Mass Index (BMI) 33.8 Intake & Output: Intake and Output for Last 24 Hours 03/29/22 03/30/22 03/31/22 23:59 23:59 23:59 Intake Total 2678.61 / 2678.61 2192.57 / 2192.57 Output Total 500 / 500 1310 / 1310 Balance 2178.61 / 2178.61 882.57 / 882.57 Lab / Micro Data Result Diagrams: 04/03/22 06:40 Labs: Laboratory Results - last 24 hr 03/31/22 04:25: WBC 16.8 H, RBC 3.39 L, Hgb 9.5 L, Hct 31.0 L, MCV 91.4 D, MCH 28.0, MCHC 30.6 L D, RDW Std Deviation 46.5 H, RDW Coeff of Hayley 14.0, Plt Count 170, MPV 11.9, Immature Gran % (Auto) 0.500, Neut % (Auto) 89.8 H, Lymph % (Auto) 3.5 L, [place] % (Auto) 5.9, Eos % (Auto) 0.1, Baso % (Auto) 0.2, Absolute Neuts (auto) 15.1 H, Absolute Lymphs (auto) 0.58 L, Nucleated RBC % 0 03/31/22 04:25: PT 14.4, INR 1.2, APTT 30.0, Fibrinogen 360 03/31/22 08:05: WBC 16.2 H, RBC 3.40 L, Hgb 9.5 L, Hct 29.6 L, MCV 87.1, MCH 27.9, MCHC 32.1, RDW Std Deviation 43.8, RDW Coeff of [place] 14.0, Plt Count 169, MPV 11.5, Immature Gran % (Auto) 0.400, Neut % (Auto) 88.0 H, Lymph % (Auto) 4.8 L, [place] % (Auto) 6.7, Eos % (Auto) 0.0, Baso % (Auto) 0.1, Absolute Neuts (auto) 14.3 H, Absolute Lymphs (auto) 0.78 L, Nucleated RBC % 0 03/31/22 08:05: PT 14.9, INR 1.2, APTT 29.7, Fibrinogen 371 03/31/22 12:20: WBC 10.2, RBC 2.78 L, Hgb 7.8 L, Hct 24.3 L, MCV 87.4, MCH 28.1, MCHC 32.1, RDW Std Deviation 44.2 H, RDW Coeff of [place] 14.0, Plt Count 166, MPV 12.1 H, Immature Gran % (Auto) 0.300, Neut % (Auto) 85.6 H, Lymph % (Auto) 8.9 L, [place] % (Auto) 5.0, Eos % (Auto) 0.0, Baso % (Auto) 0.2, Absolute Neuts (auto) 8.7 H, Absolute Lymphs (auto) 0.91, Nucleated RBC % 0 Micro: Microbiology 03/30/22 07:00 Nasal Secretion SARS-CoV-2 Antigen (Rapid) - Final ROS Constitutional Constitutional: Reports systems reviewed and no addt'l complaints, except as documented Cardiovascular Cardiovascular: Reports systems reviewed and no addt'l complaints, except as documented Respiratory/Chest Respiratory/Chest: Reports systems reviewed and no addt'l complaints, except as documented Gastrointestinal Gastrointestinal: Reports systems reviewed and no addt'l complaints, except as documented Physical Exam Const alert, oriented x3 and no apparent distress HEENT Head and Scalp: atraumatic Resp normal respiratory effort GI soft to palpation and non-tender Inspection: incision intact, healing well and drainage (none) Assessment & Plan (1) S/P emergency hysterectomy: (2) Cervical laceration: COMMENT: cervical extension at time of RLTCS during failed TOLAC (3) delivery delivered: COMMENT: AOD 8-9 cm recurrent variables 41 IOL postdates SM failed TOLAC RLTCS cervical extension chyst girl (4) Acute postoperative anemia due to greater than expected blood loss: COMMENT: serial Hgs. hemodynamically stable. (5) hemorrhage: (6) Status post emergency hysterectomy: COMMENT: failed TOLAC, right broad ligament hematoma from cervical laceration PLAN: Plan s/p hysterectomy PPD # 0 1. stable for transfer from ICU- discussed with water ski assembler. continue to follow serial HCGs 2. DVT prophylaxis- SCDs and start lovenox tomorrow 3. RAJ drain continuing to output. 4. increase po intake and oral pain control
[2022-03-31] MEDS: 0.9% Saline Lock 10 ML Syringe IV (14:43)
--- NOTE | 2022-03-31 18:41 | NURSING ---
attempted twice to obtain 1800 cbc lab called and asked to come over to try- dr flores called and gave permission to draw from feet is needed
[2022-03-31 19:08] LABS: Absolute Lymphocyte Count 0.94 X10^3/uL (0.83-4.51); Absolute Neutrophil Count 7.7 X10^3/uL (2.0-7.7); Basophil# 0.01 X10^3/uL; Basophil% 0.1 % (0-1); Eosinophil# 0.04 X10^3/uL; Eosinophils% 0.4 % (0-5); Hematocrit 22.7 % (37-47); Hemoglobin 7.4 g/dL (12.0-15.0); Lymphocyte # 0.94 X10^3/ul (0.83-4.51); Lymphocyte % 9.9 % (19-41); Mean Corp Hgb Conc 32.6 g/dL (32-36); Mean Corpuscular Hgb 27.3 pg (27.0-32.0); Mean Corpuscular Volume 83.8 fL (81-99); Mean Platelet Vol. 12.2 fl (6.2-12.0); Monocyte# 0.78 X10^3/uL; Monocyte% 8.2 % (0-10); NRBC Flagged by Analyzer 0 % (0-5); Neutrophil # 7.69 X10^3/uL (2.7-7.7); Neutrophil % 80.7 % (47-70); POSITIVE COUNT YES; Platelet Count 116 K/mm3 (150-450); RBC Distribution Width CV 14.1 % (11.6-14.6); RBC Distribution Width SD 42.3 fl (35.1-43.9); Red Blood Count 2.71 M/mm3 (4.2-5.4); White Blood Count 9.5 K/mm3 (4.4-11.0)
[2022-03-31 19:12] LABS: Differential Indicated SCAN CRITERIA MET
[2022-03-31 19:47] LABS: Differential Comment SCANNED
[2022-03-31] MEDS: Lactated Ringers 1,000 ML 50 ML IV (22:33)
[2022-04-01] VITALS (7 sets, daily range): BP systolic 95–126; BP diastolic 55–74; PULSE 94–117; RESP 16–18; TEMP 36.1–36.6; O2SAT 95–100
[2022-04-01] MEDS: Acetaminophen 500 MG Tablet 1000 MG PO ×4 (02:47→22:23)
[2022-04-01] MEDS: Ketorolac 30 MG/ML Syringe IV ×2 (02:47→09:43)
[2022-04-01] MEDS: oxyCODONE 5 MG Tablet PO ×2 (04:53→20:53)
[2022-04-01 06:51] LABS: Hematocrit 22.3 % (37-47); Hemoglobin 7.5 g/dL (12.0-15.0); Mean Corp Hgb Conc 33.6 g/dL (32-36); Mean Corpuscular Hgb 29.1 pg (27.0-32.0); Mean Corpuscular Volume 86.4 fL (81-99); Mean Platelet Vol. 11.6 fl (6.2-12.0); POSITIVE COUNT YES; Platelet Count 129 K/mm3 (150-450); RBC Distribution Width CV 14.6 % (11.6-14.6); RBC Distribution Width SD 45.1 fl (35.1-43.9); Red Blood Count 2.58 M/mm3 (4.2-5.4); White Blood Count 10.5 K/mm3 (4.4-11.0)
[2022-04-01 06:52] LABS: Scan Indicated on CBC? Y/N YES- FLAGS NOTED
--- NOTE | 2022-04-01 07:49 | NURSING ---
is at the bedside she is aware I just drained 60cc at this time and nights drained 60 as well per nights report. Incision bandage is intact and dry. states she is going to order an iron infusion.
--- NOTE | 2022-04-01 07:55 | PN.OBGYN_ITS ---
Subjective Subjective Patient doing well without complaints. Tolerating PO. Ambulating and voiding without difficulty. Feeding well. Denies chest pain, shortness of breath, calf pain/swelling, fevers, chills, lightheadedness. Objective Data Objective Data Vital Signs: Vital Signs Temp Pulse Resp BP Pulse Ox O2 Del Method 97.8 F 109 H 16 111/73 97 Room Air 04/01/22 07:38 04/01/22 07:38 04/01/22 07:38 04/01/22 07:38 04/01/22 07:38 04/01/22 07:38 Oxygen Delivery Method Room Air Weight: 179 lb 3.2 oz Body Mass Index (BMI) 33.8 Intake & Output: Intake and Output for Last 24 Hours 03/30/22 03/31/22 04/01/22 23:59 23:59 23:59 Intake Total 2678.61 / 2678.61 3502.57 / 3502.57 Output Total 500 / 500 3335 / 3335 1920 / 1920 Balance 2178.61 / 2178.61 167.57 / 167.57 -1920 / -1920 Lab / Micro Data Result Diagrams: 04/01/22 06:45 Labs: Laboratory Results - last 24 hr 03/31/22 08:05: WBC 16.2 H, RBC 3.40 L, Hgb 9.5 L, Hct 29.6 L, MCV 87.1, MCH 27.9, MCHC 32.1, RDW Std Deviation 43.8, RDW Coeff of Hayley 14.0, Plt Count 169, MPV 11.5, Immature Gran % (Auto) 0.400, Neut % (Auto) 88.0 H, Lymph % (Auto) 4.8 L, [place] % (Auto) 6.7, Eos % (Auto) 0.0, Baso % (Auto) 0.1, Absolute Neuts (auto) 14.3 H, Absolute Lymphs (auto) 0.78 L, Nucleated RBC % 0 03/31/22 08:05: PT 14.9, INR 1.2, APTT 29.7, Fibrinogen 371 03/31/22 12:20: WBC 10.2, RBC 2.78 L, Hgb 7.8 L, Hct 24.3 L, MCV 87.4, MCH 28.1, MCHC 32.1, RDW Std Deviation 44.2 H, RDW Coeff of Hayley 14.0, Plt Count 166, MPV 12.1 H, Immature Gran % (Auto) 0.300, Neut % (Auto) 85.6 H, Lymph % (Auto) 8.9 L , [place] % (Auto) 5.0, Eos % (Auto) 0.0, Baso % (Auto) 0.2, Absolute Neuts (auto) 8.7 H, Absolute Lymphs (auto) 0.91, Nucleated RBC % 0 03/31/22 19:00: WBC 9.5, RBC 2.71 L, Hgb 7.4 L, Hct 22.7 L, MCV 83.8, MCH 27.3, MCHC 32.6, RDW Std Deviation 42.3, RDW Coeff of Hayley 14.1, Plt Count 116 L, MPV 12.2 H, Immature Gran % (Auto) 0.700, Neut % (Auto) 80.7 H, Lymph % (Auto) 9.9 L , [place] % (Auto) 8.2, Eos % (Auto) 0.4, Baso % (Auto) 0.1, Absolute Neuts (auto) 7.7, Absolute Lymphs (auto) 0.94, Nucleated RBC % 0, Differential Comment SCANNED 04/01/22 06:45: WBC 10.5, RBC 2.58 L, Hgb 7.5 L, Hct 22.3 L, MCV 86.4, MCH 29.1, MCHC 33.6, RDW Std Deviation 45.1 H, RDW Coeff of Hayley 14.6, Plt Count 129 L, MPV 11.6 Micro: Microbiology 03/30/22 07:00 Nasal Secretion SARS-CoV-2 Antigen (Rapid) - Final ROS Constitutional Constitutional: Denies chills, fatigue, fever(s), poor appetite or weakness Eyes Eyes: Denies blurry vision, change in vision, seeing flashes or spots in vision ENT HEENT: Denies dizziness, headache(s), loss taste/smell or sore throat Cardiovascular Cardiovascular: Denies chest pain, dizziness, dyspnea, irregular heart rhythm, palpitations or rapid heart rate Respiratory/Chest Respiratory/Chest: Denies chest tightness, cough, dyspnea or breast pain Gastrointestinal Gastrointestinal: Denies abdominal pain, constipation or vomiting Genitourinary Genitourinary: Denies dysuria or flank pain Musculoskeletal Musculoskeletal: Denies difficulty walking, joint pain, limited range of motion or numbness Neurologic Neurologic: Denies abnormal movements, abnormal speech, dizziness, numbness, seizure-like activity or syncope Psychiatric Psychiatric: Denies anxiety, behavioral changes, change in appetite, confusion, depression or suicidal thoughts Physical Exam Const alert, oriented x3 and no apparent distress General Appearance: cooperative and comfortable Resp normal respiratory effort Cardio regular rate GI normal to inspection, nondistended, normoactive bowel sounds and non-tender GI Narrative: incision is clean, dry, intact Back/Spine no CVA tenderness and thoraco-lumbar ROM normal Extremity normal to inspection, no clubbing, cyanosis or edema, no calf tenderness and no pedal edema Psych mental status grossly normal, thought process normal, cooperative, affect normal, speech normal, activity/motor behavior normal, denies homicidal ideation and denies suicidal ideation Assessment & Plan (1) Cervical laceration: COMMENT: cervical extension at time of RLTCS during failed TOLAC (2) Acute postoperative anemia due to greater than expected blood loss: COMMENT: serial Hgs. hemodynamically stable. (3) delivery delivered: COMMENT: AOD 8-9 cm recurrent variables 41 IOL postdates SM failed TOLAC RLTCS cervical extension chyst girl PLAN: Plan POD #1 hysterectomy plan for iron infusion today RAJ still putting out about 120cc over the last 24 hrs. hg stable. Maintain RAJ until 30cc or less in 24 hrs. continue monitoring and plan for discharge when more stable (this weekend, maybe Wednesday as we discussed)
[2022-04-01] MEDS: Enoxaparin 40 MG/0.4 ML Syringe SC (09:44)
--- NOTE | 2022-04-01 12:26 | PN.OBGYN_ITS ---
Subjective Subjective Patient doing well without complaints. Tolerating PO. Ambulating needs to be increased and rodirguez still in, will remove now. feeding well. Denies chest pain, shortness of breath, calf pain/swelling, fevers, chills, lightheadedness. RAJ drain putting out 20 in the last 4 hours sero/sanguinous fluid. Objective Data Objective Data Vital Signs: Vital Signs Temp Pulse Resp BP Pulse Ox O2 Del Method 96.9 F L 94 16 95/56 L 99 Room Air 04/01/22 11:00 04/01/22 11:00 04/01/22 11:00 04/01/22 11:00 04/01/22 11:00 04/01/22 07:38 Oxygen Delivery Method Room Air Weight: 179 lb 3.2 oz Body Mass Index (BMI) 33.8 Intake & Output: Intake and Output for Last 24 Hours 03/30/22 03/31/22 04/01/22 23:59 23:59 23:59 Intake Total 2678.61 / 2678.61 3502.57 / 3502.57 Output Total 500 / 500 3335 / 3335 2620 / 2620 Balance 2178.61 / 2178.61 167.57 / 167.57 -2620 / -2620 Lab / Micro Data Result Diagrams: 04/01/22 06:45 Labs: Laboratory Results - last 24 hr 03/31/22 12:20: WBC 10.2, RBC 2.78 L, Hgb 7.8 L, Hct 24.3 L, MCV 87.4, MCH 28.1, MCHC 32.1, RDW Std Deviation 44.2 H, RDW Coeff of Hayley 14.0, Plt Count 166, MPV 12.1 H, Immature Gran % (Auto) 0.300, Neut % (Auto) 85.6 H, Lymph % (Auto) 8.9 L , [place] % (Auto) 5.0, Eos % (Auto) 0.0, Baso % (Auto) 0.2, Absolute Neuts (auto) 8.7 H, Absolute Lymphs (auto) 0.91, Nucleated RBC % 0 03/31/22 19:00: WBC 9.5, RBC 2.71 L, Hgb 7.4 L, Hct 22.7 L, MCV 83.8, MCH 27.3, MCHC 32.6, RDW Std Deviation 42.3, RDW Coeff of Hayley 14.1, Plt Count 116 L, MPV 12.2 H, Immature Gran % (Auto) 0.700, Neut % (Auto) 80.7 H, Lymph % (Auto) 9.9 L , [place] % (Auto) 8.2, Eos % (Auto) 0.4, Baso % (Auto) 0.1, Absolute Neuts (auto) 7.7, Absolute Lymphs (auto) 0.94, Nucleated RBC % 0, Differential Comment SCANNED 04/01/22 06:45: WBC 10.5, RBC 2.58 L, Hgb 7.5 L, Hct 22.3 L, MCV 86.4, MCH 29.1, MCHC 33.6, RDW Std Deviation 45.1 H, RDW Coeff of Hayley 14.6, Plt Count 129 L, MPV 11.6 Micro: Microbiology 03/30/22 07:00 Nasal Secretion SARS-CoV-2 Antigen (Rapid) - Final ROS Constitutional Constitutional: Reports systems reviewed and no addt'l complaints, except as documented Cardiovascular Cardiovascular: Reports systems reviewed and no addt'l complaints, except as documented Respiratory/Chest Respiratory/Chest: Reports systems reviewed and no addt'l complaints, except as documented Gastrointestinal Gastrointestinal: Reports systems reviewed and no addt'l complaints, except as documented Physical Exam Const alert, oriented x3 and no apparent distress HEENT Head and Scalp: atraumatic Resp normal respiratory effort GI soft to palpation and non-tender Inspection: incision intact, healing well and drainage (none) Assessment & Plan (1) Cervical laceration: COMMENT: cervical extension at time of RLTCS during failed TOLAC (2) Acute postoperative anemia due to greater than expected blood loss: COMMENT: serial Hgs. hemodynamically stable. (3) delivery delivered: COMMENT: AOD 8-9 cm recurrent variables 41 IOL postdates SM failed TOLAC RLTCS cervical extension chyst girl (4) S/P emergency hysterectomy: (5) hemorrhage: PLAN: Plan s/p hysterectomy PPD # 0 1. s/p continue to follow serial HCGs 2. DVT prophylaxis- SCDs and start lovenox today 3. RAJ drain continuing to output, monitor but continue for now. 4. increase po intake and oral pain control
[2022-04-01] MEDS: Lactated Ringers 1,000 ML 50 ML IV (15:48)
[2022-04-01] MEDS: Ibuprofen 600 MG Tablet PO ×2 (16:52→22:24)
[2022-04-02] VITALS (8 sets, daily range): BP systolic 94–123; BP diastolic 57–79; PULSE 74–96; RESP 14–18; TEMP 36.1–36.6; O2SAT 96–99
[2022-04-02] MEDS: Acetaminophen 500 MG Tablet 1000 MG PO ×3 (04:43→18:26)
[2022-04-02] MEDS: Ibuprofen 600 MG Tablet PO ×3 (04:44→18:26)
[2022-04-02 05:20] LABS: Hematocrit 21.4 % (37-47); Hemoglobin 6.8 g/dL (12.0-15.0); Mean Corp Hgb Conc 31.8 g/dL (32-36); Mean Corpuscular Hgb 28.2 pg (27.0-32.0); Mean Corpuscular Volume 88.8 fL (81-99); Mean Platelet Vol. 11.4 fl (6.2-12.0); Platelet Count 185 K/mm3 (150-450); RBC Distribution Width CV 14.6 % (11.6-14.6); RBC Distribution Width SD 46.7 fl (35.1-43.9); Red Blood Count 2.41 M/mm3 (4.2-5.4); White Blood Count 8.7 K/mm3 (4.4-11.0)
--- NOTE | 2022-04-02 07:37 | NURSING ---
Lab called to redraw type and screen.
--- NOTE | 2022-04-02 08:09 | PCM.PN.OB ---
Subjective Subjective Patient doing well without complaints. Tolerating PO. Ambulating needs to be increased and rodriguez still in, will remove now. feeding well. Denies chest pain, shortness of breath, calf pain/swelling, fevers, chills, lightheadedness. RAJ drain putting out 20 in the last 4 hours sero/sanguinous fluid. Objective Data Objective Data Vital Signs: Vital Signs Temp Pulse Resp BP Pulse Ox O2 Del Method 97.0 F L 113 H 16 113/64 97 Room Air 04/02/22 01:31 04/01/22 20:30 04/02/22 01:31 04/02/22 01:31 04/01/22 16:54 04/02/22 01:31 Oxygen Delivery Method Room Air Weight: 179 lb 3.2 oz Body Mass Index (BMI) 33.8 Intake & Output: Intake and Output for Last 24 Hours 03/31/22 04/01/22 04/02/22 23:59 23:59 23:59 Intake Total 3502.57 / 3502.57 2027.5 / 2027.5 Output Total 3335 / 3335 4820 / 4820 Balance 167.57 / 167.57 -2792.5 / -2792.5 Lab / Micro Data Result Diagrams: 04/03/22 06:40 Labs: Laboratory Results - last 24 hr 04/02/22 05:15: WBC 8.7, RBC 2.41 L, Hgb 6.8 L, Hct 21.4 L, MCV 88.8, MCH 28.2, MCHC 31.8 L D, RDW Std Deviation 46.7 H, RDW Coeff of Hayley 14.6, Plt Count 185, MPV 11.4 04/02/22 07:56: Crossmatch See Detail Micro: Microbiology 03/30/22 07:00 Nasal Secretion SARS-CoV-2 Antigen (Rapid) - Final ROS Constitutional Constitutional: Reports systems reviewed and no addt'l complaints, except as documented Cardiovascular Cardiovascular: Reports systems reviewed and no addt'l complaints, except as documented Respiratory/Chest Respiratory/Chest: Reports systems reviewed and no addt'l complaints, except as documented Gastrointestinal Gastrointestinal: Reports systems reviewed and no addt'l complaints, except as documented Physical Exam Const alert, oriented x3 and no apparent distress HEENT Head and Scalp: atraumatic Resp normal respiratory effort GI soft to palpation and non-tender Inspection: incision intact, healing well and drainage (none) Assessment & Plan (1) delivery delivered: COMMENT: AOD 8-9 cm recurrent variables 41 IOL postdates SM failed TOLAC RLTCS cervical extension chyst girl (2) Acute postoperative anemia due to greater than expected blood loss: COMMENT: serial Hgs. transfusion 1 unit PRBCs (3) Cervical laceration: COMMENT: cervical extension at time of RLTCS during failed TOLAC (4) Status post emergency hysterectomy: COMMENT: failed TOLAC, right broad ligament hematoma from cervical laceration (5) S/P emergency hysterectomy: (6) hemorrhage: PLAN: Plan s/p hysterectomy PPD # 2 1. Hg dropped below transfusion threshold- will give 1 unit now. 2. DVT prophylaxis- SCDs and start lovenox today 3. RAJ drain remove this afternoon if low output 4. increase po intake and oral pain control
[2022-04-02] MEDS: oxyCODONE 5 MG Tablet PO ×4 (08:24→20:55)
[2022-04-02] MEDS: 0.9% Saline Lock 10 ML Syringe IV ×2 (11:01→13:00)
[2022-04-02] MEDS: Enoxaparin 40 MG/0.4 ML Syringe SC (11:07)
[2022-04-02] MEDS: Senna/Docusate Sodium 1 Tablet PO (11:07)
[2022-04-02] MEDS: Lactated Ringers 1,000 ML 50 ML IV (13:00)
--- NOTE | 2022-04-02 17:05 | NURSING ---
Lab informed RN of difficulty with IV stick, finger stick done and sample very small. Will attempt to send and run H+H and will notify RN if unable to use sample.
--- NOTE | 2022-04-02 17:20 | NURSING ---
RAJ drain removed by Dr. Chapa, emptied 3ml after discontinued. Pt given 50mcg IV fentanyl per physician bedside order. New silver meplex dressing applied.
[2022-04-02] MEDS: fentaNYL 100 MCG/2 ML Ampul 50 MCG IV (17:25)
[2022-04-03] MEDS: Acetaminophen 500 MG Tablet 1000 MG PO ×4 (00:31→17:45)
[2022-04-03] MEDS: Ibuprofen 600 MG Tablet PO ×4 (00:31→17:46)
[2022-04-03 00:33] VITALS: BP 116/75; PULSE 95; RESP 16; TEMP 36.9; O2SAT 97
[2022-04-03] MEDS: oxyCODONE 5 MG Tablet PO ×4 (01:11→17:46)
[2022-04-03 04:00] VITALS: BP 109/66; PULSE 87; RESP 17; TEMP 37; O2SAT 97
[2022-04-03 06:56] LABS: Absolute Lymphocyte Count 1.62 X10^3/uL (0.83-4.51); Absolute Neutrophil Count 4.9 X10^3/uL (2.0-7.7); Basophil# 0.03 X10^3/uL; Basophil% 0.4 % (0-1); Eosinophil# 0.46 X10^3/uL; Eosinophils% 6.1 % (0-5); Hematocrit 24.3 % (37-47); Hemoglobin 7.5 g/dL (12.0-15.0); Lymphocyte # 1.62 X10^3/ul (0.83-4.51); Lymphocyte % 21.5 % (19-41); Mean Corp Hgb Conc 30.9 g/dL (32-36); Mean Corpuscular Hgb 27.7 pg (27.0-32.0); Mean Corpuscular Volume 89.7 fL (81-99); Monocyte# 0.46 X10^3/uL; Monocyte% 6.1 % (0-10); NRBC Flagged by Analyzer 0 % (0-5); Neutrophil # 4.93 X10^3/uL (2.7-7.7); Neutrophil % 65.2 % (47-70); Platelet Count 198 K/mm3 (150-450); RBC Distribution Width CV 14.6 % (11.6-14.6); RBC Distribution Width SD 46.8 fl (35.1-43.9); Red Blood Count 2.71 M/mm3 (4.2-5.4); White Blood Count 7.6 K/mm3 (4.4-11.0)
[2022-04-03] MEDS: Lactated Ringers 1,000 ML 50 ML IV (08:55)
[2022-04-03 09:00] VITALS: BP 123/83; PULSE 80; RESP 16; TEMP 36.1
[2022-04-03] MEDS: Enoxaparin 40 MG/0.4 ML Syringe SC (11:22)
[2022-04-03] MEDS: Senna/Docusate Sodium 1 Tablet PO (11:22)
--- NOTE | 2022-04-03 11:33 | PN.OBGYN_ITS ---
Subjective Subjective Patient doing well without complaints. Tolerating PO. Ambulating and voiding, feels better after transufion. feeding well. Denies chest pain, shortness of breath, calf pain/swelling, fevers, chills, lightheadedness. RAJ drain removed Objective Data Objective Data Vital Signs: Vital Signs Temp Pulse Resp BP Pulse Ox O2 Del Method 97.0 F L 80 16 123/83 H 97 Room Air 04/03/22 09:00 04/03/22 09:00 04/03/22 09:00 04/03/22 09:00 04/03/22 04:00 04/03/22 04:00 Oxygen Delivery Method Room Air Weight: 179 lb 3.2 oz Body Mass Index (BMI) 33.8 Intake & Output: Intake and Output for Last 24 Hours 04/01/22 04/02/22 04/03/22 23:59 23:59 23:59 Intake Total 2027.5 / 2027.5 1433.27 / 1433.27 995.83 / 995.83 Output Total 4820 / 4820 Balance -2792.5 / -2792.5 1419.27 / 1419.27 995.83 / 995.83 Lab / Micro Data Result Diagrams: 04/03/22 06:40 Labs: Laboratory Results - last 24 hr 04/02/22 07:56: Crossmatch See Detail 04/02/22 17:00: Hgb Cancelled, Hct Cancelled 04/03/22 06:40: WBC 7.6, RBC 2.71 L, Hgb 7.5 L, Hct 24.3 L, MCV 89.7, MCH 27.7, MCHC 30.9 L, RDW Std Deviation 46.8 H, RDW Coeff of Hayley 14.6, Plt Count 198, MPV 11.0, Immature Gran % (Auto) 0.700, Neut % (Auto) 65.2, Lymph % (Auto) 21.5, [place] % (Auto) 6.1, Eos % (Auto) 6.1 H, Baso % (Auto) 0.4, Absolute Neuts (auto) 4.9, Absolute Lymphs (auto) 1.62, Nucleated RBC % 0 Micro: Microbiology 03/30/22 07:00 Nasal Secretion SARS-CoV-2 Antigen (Rapid) - Final ROS Constitutional Constitutional: Reports systems reviewed and no addt'l complaints, except as documented Cardiovascular Cardiovascular: Reports systems reviewed and no addt'l complaints, except as documented Respiratory/Chest Respiratory/Chest: Reports systems reviewed and no addt'l complaints, except as documented Gastrointestinal Gastrointestinal: Reports systems reviewed and no addt'l complaints, except as documented Physical Exam Const alert, oriented x3 and no apparent distress HEENT Head and Scalp: atraumatic Resp normal respiratory effort GI soft to palpation and non-tender Inspection: incision intact, healing well and drainage (none) Assessment & Plan (1) Status post emergency hysterectomy: COMMENT: failed TOLAC, right broad ligament hematoma from cervical laceration (2) delivery delivered: COMMENT: AOD 8-9 cm recurrent variables 41 IOL postdates SM failed TOLAC RLTCS cervical extension chyst girl (3) Acute postoperative anemia due to greater than expected blood loss: COMMENT: serial Hgs. transfusion 1 unit PRBCs (4) Cervical laceration: COMMENT: cervical extension at time of RLTCS during failed TOLAC (5) S/P emergency hysterectomy: (6) hemorrhage: PLAN: Plan s/p hysterectomy PPD # 3 1. Hg dropped below transfusion threshold- s/p 1 unit, clinically stable dc home on iron, s/p iv venofer x 1 2. DVT prophylaxis- SCDs and lovenox 3. RAJ drain out 4. increase po intake and oral pain control
--- NOTE | 2022-04-03 11:34 | PCM.DC.SUM ---
Providers Date of Admission: 03/30/22 Primary Care Physician: Nicole Primary Care Phys Reason For Visit: Diagnosis Discharge Diagnosis (1) delivery delivered: Status: Acute Code(s): O82 - Encounter for delivery without indication (2) Acute postoperative anemia due to greater than expected blood loss: Status: Acute Code(s): D62 - Acute posthemorrhagic anemia (3) Cervical laceration: Status: Acute Code(s): S37.63XA - Laceration of uterus, initial encounter (4) Status post emergency hysterectomy: Status: Acute Code(s): Z90.710 - Acquired absence of both cervix and uterus Medications at Discharge Home Medications vits,calcium no.78-iron fumarate-folic acid 29 mg-1 mg tablet (Prenatabs FA) 1 tab PO DAILY 02/12/15 nitrofurantoin macrocrystal 100 mg capsule 100 mg PO BID #60 caps 11/04/21 naproxen 250 mg tablet 250 - 500 mg PO Q8H PRN PRN MILD PAIN #30 tabs 03/31/22 oxycodone-acetaminophen 5 mg-325 mg tablet (Percocet) 1 tab PO Q6H PRN pain 7 days #20 tabs 03/31/22 docusate sodium 100 mg capsule (Colace) 100 mg PO BID #60 caps 04/03/22 ferrous sulfate 325 mg (65 mg iron) tablet (Iron (ferrous sulfate)) 325 mg PO BID #60 tabs 04/03/22 Hospital Course Summary of Care Provided Hospital Course: patient presented for 41 week IOL h/o 5 and 1 cs for NRFHTs. patient had AOD at 8-9 so underwent LTCS, had a broad ligament hematoma noted that despite conservative management surgically with attempts to save the uterus for over three hours, the life saving decision for hysterectomy was made and performed, and the cause for the broad ligament hematoma, a deep cervical laceration extension, was able to be diagnosed during hysterectomy that was unable to be seen during the due to limited operative exposure. Postoperatively the patient did well and had a return of bowel and bladder function and was ambulating well, tolerating adequate p.o., and her Hg did drop to 6.8 and therefore she was given 1 unit PRBCs. She was stable for discharge to home on postop day #3. Discharge medications naproxen, colace, iron and Percocet. Follow-up in office in 2 weeks for incision check in 6 weeks for visit. Routine post diet and activity instructions. Weight / BMI Weight Weight: 179 lb 3.2 oz Body Mass Index (BMI) 33.8 ABG / Lab / Microbiology Data Result Diagrams: 04/03/22 06:40 Laboratory: Laboratory Results - last 24 hr 04/02/22 07:56: Crossmatch See Detail 04/02/22 17:00: Hgb Cancelled, Hct Cancelled 04/03/22 06:40: WBC 7.6, RBC 2.71 L, Hgb 7.5 L, Hct 24.3 L, MCV 89.7, MCH 27.7, MCHC 30.9 L, RDW Std Deviation 46.8 H, RDW Coeff of Hayley 14.6, Plt Count 198, MPV 11.0, Immature Gran % (Auto) 0.700, Neut % (Auto) 65.2, Lymph % (Auto) 21.5, [place] % (Auto) 6.1, Eos % (Auto) 6.1 H, Baso % (Auto) 0.4, Absolute Neuts (auto) 4.9, Absolute Lymphs (auto) 1.62, Nucleated RBC % 0 Microbiology: Microbiology 03/30/22 07:00 Nasal Secretion SARS-CoV-2 Antigen (Rapid) - Final D/C Instructions Discharge Diet: No restrictions Discharge Activity: May Not Drive (for 2 weeks or while taking narcotic pain medications.), May Shower and May Take a Tub Bath (in 7 days) May shower in (days): 0 May resume sexual activity in: 6 weeks Weight Bearing Status: Full weight bearing Call your doctor if your incision/area has: Continuous Slow Oozing, Sudden Increased Bleeding, Increased Pain/ Swelling, Increased Redness, Foul Smelling Discharge and - Call your doctor if you observe: Fever of 101 or Higher, Using more than 1 pad per hour, Shortness of breath, Chest pain and Uncontrolled pain Suture Line Care: Avoid Pulling/Pushing and Avoid Pinching/Bending Cleanse incision/area with: Soap & Water and Keep Dressing Clean & Dry Please Follow Up With: Luz Chapa MD When: Call to make an appointment with your doctor for a postop visit in 2 and 6 weeks. Meaningful Use Info Meaningful Use Diagnoses (Choose all that apply): None applicable Discharge Plan Admission Admit Date/Time: 03/30/22 05:42 Primary Reason for Your Visit: hysterectomy Attending Provider: Luz Chapa Primary Care Provider: Nicole Dorantes Primary Discharge Orders/Prescriptions Prescriptions: New naproxen 250 mg tablet 250 - 500 mg PO Q8H PRN PRN (Reason: MILD PAIN) Qty: 30 1RF oxycodone-acetaminophen [Percocet] 5-325 mg tablet 1 tab PO Q6H PRN (Reason: pain) 7 Days Qty: 20 0RF ferrous sulfate [Iron (ferrous sulfate)] 325 mg (65 mg iron) tablet 325 mg PO BID Qty: 60 3RF docusate sodium [Colace] 100 mg capsule 100 mg PO BID Qty: 60 2RF No Action vit,[id number] [Prenatabs FA] 1 TABLET tablet 1 tab PO DAILY nitrofurantoin macrocrystal 100 mg capsule 100 mg PO BID Qty: 60 2RF Rx Instructions: Take bid X 7 days then daily for remainder of administer with food (meal or snack) Referrals / Follow Up: Care Physician,No Primary [Primary Care Provider] - Disposition Disposition (needs filled in before D/C Order can be placed): Home, Self Care
[2022-04-03 14:17] VITALS: BP 116/80; PULSE 93; RESP 16; TEMP 36.1
[2022-04-03 16:48] VITALS: BP 132/87; PULSE 95; RESP 16; TEMP 36.5; O2SAT 97
[2022-04-03 17:48] VITALS: BP 132/87; PULSE 95; RESP 18; TEMP 36.5; O2SAT 97
== END 2022-04-03 18:10 | disposition home or self-care (01) | DRG 540 ==
LOC: WP 03-31 02:47 → ICU 03-31 07:19 → WP 03-31 14:07
PROVIDERS: Admitting Provider Obstetrics & Gynecology; Visit Provider Obstetrics & Gynecology
PROC: (CPT 59514; principal; 2022-03-30 07:15)
DX: O72.1 Other immediate postpartum hemorrhage (principal); D62 Acute posthemorrhagic anemia; L29.9 Pruritus, unspecified; S37.63XA Laceration of uterus, initial encounter; O48.0 Post-term pregnancy; O99.814 Abnormal glucose complicating childbirth; O99.02 Anemia complicating childbirth; Z37.0 Single live birth; O77.9 Labor and delivery complicated by fetal stress, unspecified; O62.0 Primary inadequate contractions; R82.71 Bacteriuria; O99.824 Streptococcus B carrier state complicating childbirth; O99.72 Diseases of the skin and subcutaneous tissue complicating childbirth; O34.211 Maternal care for low transverse scar from previous cesarean delivery; Z3A.41 41 weeks gestation of pregnancy; O26.23 Pregnancy care for patient with recurrent pregnancy loss, third trimester
CPT/HCPCS: 36415; 59025; 59050; 85025; 85027; 85384; 85610; 85730; 86850; 86900; 86901; 86920; 86922; 87426; 88302; 88305; 88307; 99218; 99251; J1756; J7030; J7040; J7050; J7120; P9016; A4216; G0378; G0463; J2405; Q9968

== ENCOUNTER → 2022-04-15 | Outpatient (CLI) | payer MEDICAID, SELFPAY | END | disposition home or self-care (01) | LOC: LABSPEC 16:10 | PROVIDERS: Referring Provider Nurse Practitioner Women's Health; Visit Provider Nurse Practitioner Women's Health | DX: R30.0 Dysuria (principal) | CPT/HCPCS: 87086 ==